=== PATIENT | male | born 1990 | race Caucasian/White ===

== ENCOUNTER 2017-02-01 14:13 | Emergency (ER) | payer OTHER ==
[~2017-02-01] VITALS: Ht 172.7 cm; Wt 97.5 kg
[2017-02-01] MEDS ORDERED: MEDROL 4MG. DOSE4 MG PO (14:48)
[2017-02-01] MEDS ORDERED: ZITHROMAX Z PA250 MG PO (14:48)
[2017-02-01] MEDS ORDERED: PROMETHAZINE D118 ML PO (14:48)
--- NOTE | 2017-02-01 14:48 | Urgent Treatment Center Report ---
History of Present Issue Date/Time Seen by Provider 02/01/17 1441 Visit Reason Pt arrived:Walked Presenting Problem:PT C/O BODYACHES EARLIER THIS WK BUT STATES THAT THEY HAVE SUBSIDED NOW. PT STATES THE ONLY PROBLEM HE HAS NOW IS A PERSISTANT COUGH Location if Accident: Onset of symptoms date/time:/ or onset unknown for:MEDICAL HX UNKNOWN Have you (or family members/close friends) recently traveled outside the [place]? N If Yes, where/when: Have you had exposure to infectious disease within the past month? TB? Other? Specify: Patient state that he has been having flu like symptoms earlier in the week states that then he began to go away and now he is having sore throat and persistant non-productive cough State that he feels like somthing is draining down his neck and making him cough State that today his throat is more sore and still coughing so he came in to get checked ALLERGIES Coded Allergies: No Known Allergies (02/01/17) History Medical History General CAD? No Angina: No ME: No Hypertension? No Hyperlipidemia? No CHF? No DVT? No PE? No COPD? No Asthma? No Anemia? No GERD? No Gastric ulcers? No GI Bleed? No Hernia? No Thyroid Problems? No Hypothyroidism? No CVA? No Seizures? No Diabetes? No Renal Insuffiency? No UTI? No Stones? No BPH? No GB Disease: No Nephritic Syndrome? No Asplenia? No Hepatitis? No Sickle Cell Disease? No Arthritis? No Migraines? No Cataracts? No Glaucoma? No MRSA? No HIV? No TB? No Anxiety? No Depression? No Cancer? No More? No Immunization HX DT/Tetanus Unknown Surgical Hx Previous Surgery?N Social History Smoking Hx Smoker: Former Smoker Tobacco: Yes Type Cigarettes Alcohol Alcohol: No Review of Systems All Other Systems Reviewed and Negative ENT nose congestion, throat pain. Respiratory cough, denies shortness of breath, denies wheezing Gastrointestinal denies nausea, denies vomiting Physical Exam Vital Signs Vital Signs Date Time Temp Pulse Resp B/P Pulse O2 O2 Flow FiO2 Ox Delivery Rate 02/01 1436 98.4 112 18 142/87 97 General Appearance normal appearance, WD/WN, no apparent distress Ear, Nose, Throat Throat red, irritated, drainage noted, tenderness maxillary sinuses Respiratory Status Yes: trachea midline, chest symmetrical, non tender chest. No: respiratory distress. Lung Sounds bilateral: normal breath sounds, lungs clear. Cardiovascular normal exam, regular rate/rhythm, no peripheral edema Neurologic alert, normal exam, oriented x 3 Medical Decision Making LABS/Meds/Orders Pt receiving controlled substance in ED? No Departure Departure Time of Disposition 1443 Disposition DC Home or Self Care(routine) Clinical Impression Primary Impression: Upper respiratory infection Qualifiers: URI type: unspecified URI Qualified Code: J06.9 - Acute upper respiratory infection, unspecified Condition STABLE Referrals Jose F Strickland MD (Family): 2 Days-Call Office if no improvement or worsening of symptoms Patient Instructions Cough, Sore Throat Additional Instructions * Monitor Temp. Tylenol and/or Ibuprofen as needed. ER if fever is no less than 101 despite alternating Tylenol and Ibuprofen * Encourage fluids, water, Gatorade, powerade, pedialyte if infant/toddler/or child * Warm salt water gargles for throat irritation *Warm fluids *Sore throat lozenges *Sleep elevated *humidifier or vaporizer Lots of rest Increase fluids, water, Gatorade, powerade Follow up IMMEDIATELY for new or worsening of symptoms OR no noticeable improvement over the next 48-72 hours. 911 immediately Discharge Counseling Counseled pt/family regarding diagnosis, test results, medications/RX, home care Prescriptions Current Visit Scripts Azithromycin (Zithromycin (Z-FOX) 250MG Tab) 250 MG PO DAILY #6 TAB TAKE TWO (2) TABLETS ON DAY 1, THEN ONE (1) TABLET DAY #2 THRU #5 Methylprednisolone (Medrol Dose Fox) 4 MG PO UD #1 FOX TAKE DIRECTED ON PACKAGING PROMETHAZINE/DEXTROMETHORPHAN (Promethazine-Dm Syrup) 5 ML PO Q4 PRN cough #150 SYR Fluticasone Propionate (Flonase 50 Mcg Nasal [place]) 2 SPRAY NA DAILY #1 BOT at 7901
[2017-02-01] MEDS ORDERED: FLONASE 50 MCG16 GM (14:52)
[2017-02-01 14:57] VITALS: BP 142/87
--- OUTSIDE RECORDS SUMMARY | 2017-02-01 18:26 | External Medical Summary Rpt | CCD ---
Author Author , RONIT Organization RONIT Address Unknown Phone [email or web address] Care Team Providers Care First Breaker Feeder Name Role Phone WELLINGTON MARTINOHEN Jose, Unavailable Unavailable JOSI MARTINO Jose [facility] Unavailable Unavailable HOSPITAL, [facility] CEFERINO CHEUNG, Unavailable Unavailable CEFERINO CHEUNG JODI, HARVEY, Unavailable Unavailable [facility], Unavailable Unavailable [employer] [facility] [employer] CARLOS FLORES, Unavailable Unavailable CARLOS FLORES JR, WILLIAM Unavailable Unavailable F, MCKEMIE JR, WILLIAM F [facility] Unavailable Unavailable DEPT, [facility] DEPT [facility], Unavailable Unavailable [facility] PATHOLOGY & CYTOLOGY Unavailable Unavailable LAB, PATHOLOGY & CYTOLOGY LAB [facility] Unavailable Unavailable #493, [facility] #493 KRYSTINA CAN JR Unavailable Unavailable PAMELLA Adler JR, EDWARD J Purpose Continuity of Care Document - 04-15-2007 through 2016 Problems Code Diagnosis DOS Provider Status V0481 NEED 01-01-2009 [facility]/CO PROPHYLACTI HEALTH C CENTRAL VACCINATION BANK ACCT &INOCULATIO N FLU 17210 ASTHMA, 03-22-2008 [facility] UNSPECIFIED STATUS 7062 SEBACEOUS 03-22-2008 ZAKIA FLORES 42226 DIARRHEA 03-19-2008 [facility] [place] INTERNAL MED 2120 VAUGHN 03-16-[address] [facility]SE NEOPLASM [facility] CAVITIES MID EAR&ACSS SINUSES V7284 UNSPECIFIED 03-16-2008 [facility] PRE-OPERATI HOSPITAL VE EXAMINATION 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 8509 UNSPECIFIED 02-09-2008 [facility] CONCUSSION [place] INTERNAL MED 9070 LATE EFF 02-03-2008 [facility] HOSPITAL [place]JURY [place] [address] HEAD 02-03-2008 [facility] INJURY, RADIOLOGY UNSPECIFIED ASSOCIATES PSC 4619 ACUTE 01-21-2008 [facility] SINUSITIS, [place] UNSPECIFIED INTERNAL MED 38940 UNSPECIFIED 01-21-2008 [facility] S[facility] OF [place] ANKLE INTERNAL SPRAIN AND MED STRAIN 6869 UNSPEC 11-30-2007 [facility] INFECTION SKIN&SUBCUT ANEOUS TISSUE 96363 OTHER 10-28-2007 [facility] DISORDERS VALLEY OF INTERNAL EUSTACHIAN MED TUBE 7804 DIZZINESS 10-28-2007 [facility] GIDDINESS INTERNAL MED 6829 CELLULITIS 10-21-2007 [facility] AND ABSCESS VAL[facility] OF INTERNAL UNSPECIFIED MED SITE 31383 ABDOMINAL 09-22-2007 [facility] PAIN, VALLEY GENERALIZED INTERNAL MED 7856 ENLARGEMENT 08-13-2007 [facility] LYMPH RADIOLOGY NODES ASSOCIATES PSC 27247 ABDOMINAL 08-13-2007 [facility] PAIN RIGHT VALLEY UPPER INTERNAL QUADRANT MED 25553 ABDOMINAL 08-13-2007 [facility] PAIN RIGHT VALLEY LOWER INTERNAL QUADRANT MED 2167 BENIGN 07-08-2007 [facility] NEOPLASM [place] SKIN LOWER INTERNAL LIMB MED INCLUDING HIP 7011 ACQUIRED 07-08-2007 [facility]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 [place] INTERNAL MED 22699 ESOPHAGEAL 06-23-2007 [facility] REFLUX [place] INTERNAL MED 87379 ABDOMINAL 06-23-2007 [facility] PA[facility], [place] EPIGASTRIC INTERNAL MED 5368 DYSPEPSIA&O 05-13-2007 [facility] THER SPEC [place] DISORDERS INTERNAL FUNCTION MED STOMACH 5589 OTH&UNSPEC 04-15-2007 [facility] NONINFECTIO [place] US INTERNAL GASTROENTER MED ITIS&COLITI S Medications Na ND Rx Da Fi Fi Am Da Di Ph RX Ph St me C No te ll ll ou ys ag ar # ys at rm s nt no ma ic us Or Da si cy ia de te s n re d 00 09 10 00 30 30 HO 99 BE Ac 00 -2 -0 .0 PK 96 SS ti 60 4- 8- 00 IN 59 ON ve 11 20 20 S [address] 1 UG EP HE CO N A IN C 00 05 09 03 30 30 HO 99 BE Ac 00 -2 -1 .0 PK 59 SS ti 60 2- 0- 00 IN 29 ON ve 11 20 20 S [address] 1 UG EP HE CO N A IN C 00 05 08 02 30 30 HO 99 BE Ac 00 -2 -1 .0 PK 59 SS ti 60 2- 3- 00 IN 29 ON ve 11 20 20 S [address] 1 UG EP HE CO N A IN C 00 05 07 01 30 30 HO 99 BE Ac 00 -2 -0 .0 PK 59 SS ti 60 2- 2- 00 IN 29 ON ve 11 20 20 S [address] 1 UG EP HE CO N A IN C 00 05 06 00 30 30 HO 99 BE Ac 00 -2 -0 .0 PK 59 SS ti 60 2- 4- 00 IN 29 ON ve 11 20 20 S [address] 1 UG EP HE CO N A IN C 00 01 05 03 30 30 HO 99 BE Ac 00 -2 -0 .0 PK 21 SS ti 60 1- 7- 00 IN 07 ON ve 11 20 20 S [address] 1 UG EP HE CO N A IN C 00 01 04 02 30 30 HO 99 BE Ac 00 -2 -0 .0 PK 21 SS ti 60 1- 9- 00 IN 07 ON ve 11 20 20 S [address] 1 UG EP HE CO N A IN C 00 01 02 01 30 30 HO 99 BE Ac 00 -2 -2 .0 PK 21 SS ti 60 1- 6- 00 IN 07 ON ve 11 20 20 S [address] 1 UG EP HE CO N A IN C 00 01 01 00 30 30 HO 99 BE Ac 00 -2 -3 .0 PK 21 SS ti 60 1- 0- 00 IN 07 ON ve 11 20 20 S [address] 1 UG EP HE CO N A IN C 59 12 01 00 8. 16 HO 99 BE Ac 31 -1 -0 50 PK 09 SS ti 00 7- 1- 0 IN 88 ON ve 57 20 20 S [address] 0 UG EP HE CO N A IN C 00 12 01 00 30 30 HO 99 BE Ac 00 -1 -0 .0 PK 09 SS ti 60 5- 1- 00 IN 56 ON ve 11 20 20 S [address] 1 UG EP HE CO N A IN C CE 68 12 01 00 30 10 WA 69 LA Ac PH 18 -1 -0 .0 L- 71 WS ti AL 00 5- 1- 00 MA 35 ON ve EX 12 20 20 RT 0 IN 20 [address] 50 AR OR 0 MA G MG CY CA #4 PS 93 UL E AC 00 12 01 00 20 5 WA 44 LA Ac ET 09 -1 -0 .0 L- 70 WS ti AM 30 5- 1- 00 MA 78 ON ve IN 15 20 20 RT 2 OP 01 [address] N- AR OR CO MA G D CY #3 #4 TA 93 BL ET 00 11 11 00 30 30 HO 98 BE Ac 00 -1 -2 .0 PK 99 SS ti 60 3- 0- 00 IN 11 ON ve 11 20 20 S [address] 1 UG EP HE CO N A IN C 64 10 10 00 84 21 HO 98 No Ac 37 -1 -2 .0 PK 89 t ti 60 5- 3- 00 IN 78 Av ve 54 20 20 S ai [address] la 1 UG bl e CO IN C ME 00 10 10 00 21 21 HO 98 No Ac LO 09 -1 -2 .0 PK 89 t ti XI 37 5- 3- 00 IN 77 Av ve CA 23 20 20 S ai M [address] la 7. 1 UG bl 5 e MG CO TA IN BL C ET 00 05 10 05 30 30 HO 98 No Ac 00 -1 -2 .0 PK 42 t ti 60 4- 3- 00 IN 83 Av ve 11 20 20 S ai [address] tristan 1 UG bl e CO IN C 00 05 09 04 30 30 HO 98 No Ac 00 -1 -2 .0 PK 42 t ti 60 4- 6- 00 IN 83 Av ve 11 20 20 S ai [address] la 1 UG bl e CO IN C 63 08 09 00 30 8 HO 98 No Ac 30 -2 -1 .0 PK 73 t ti 40 5- 1- 00 IN 03 Av ve 65 20 20 S ai [address] tristan 5 UG bl e CO IN C 00 05 08 03 30 30 HO 98 No Ac 00 -1 -2 .0 PK 42 t ti 60 4- 8- 00 IN 83 Av ve 11 20 20 S ai 73 08 08 la 1 UG bl e CO IN C CE 68 07 08 00 20 10 HO 98 No Ac FD 18 -1 -0 .0 PK 61 t ti IN 00 5- 1- 00 IN 74 Av ve IR 71 20 20 S ai [address] la 30 0 UG bl 0 e MG CO CA IN PS C UL E 00 05 08 02 30 30 HO 98 No Ac 00 -1 -0 .0 PK 42 t ti 60 4- 1- 00 IN 83 Av ve 11 20 20 S ai [address] azalea 1 UG bl e CO IN C 00 05 07 01 30 30 HO 98 No Ac 00 -1 -0 .0 PK 42 t ti 60 4- 3- 00 IN 83 Av ve 11 20 20 S ai [address] la 1 UG bl e CO IN C 00 05 05 00 30 30 HO 98 No Ac 00 -1 -2 .0 PK 42 t ti 60 4- 2- 00 IN 83 Av ve 11 20 20 S ai [address] tristan 1 UG bl e CO IN C 00 01 04 03 30 30 HO 98 No Ac 00 -1 -2 .0 PK 03 t ti 60 4- 4- 00 IN 33 Av ve 11 20 20 S ai [address] tristan 1 UG bl e CO IN C 00 01 04 02 30 30 HO 98 No Ac 00 -1 -1 .0 PK 03 t ti 60 4- 7- 00 IN 33 Av ve 11 20 20 S ai [address] tristan 1 UG bl e CO IN C 59 10 04 01 34 30 HO 97 No Ac 93 -0 -1 .0 PK 75 t ti 01 9- 0- 00 IN 07 Av ve 56 20 20 S ai [address] tristan 1 UG bl e CO IN C 00 01 03 01 30 30 HO 98 No Ac 00 -1 -2 .0 PK 03 t ti 60 4- 6- 00 IN 33 Av ve 11 20 20 S ai [address] tristan 1 UG bl e CO IN C 00 01 03 00 30 30 HO 98 No Ac 00 -1 -2 .0 PK 03 t ti 60 4- 5- 00 IN 33 Av ve 11 20 20 S ai [address] tristan 1 UG bl e CO IN C AZ 68 01 03 00 15 4 HO 98 No Ac OM 38 -0 -2 .0 PK 01 t ti ET 20 8- 4- 00 IN 49 Av ve BOSCH 04 20 20 S ai ZI [address] Garner 1 UG bl e 25 CO MG IN C TA BL ET Immunization Name Date Rout CVX Reac Dose Comm Prov Is Faci e tion ent ider Refu lity Give sed n IIV3 12-08 141 YESENIA No DHS/ 6-20 [facility] [place] VACC 09 CO HEAL INE HEAL TH SPLI TH CENT T DEPT RAL VIRU BANK S 0.5 ACCT ML DOSA GE IM USE IIV3 04-09 141 YESENIA No DHS/ 8-20 [facility] VACC 08 CO HEAL INE HEAL TH SPLI TH CENT T DEPT RAL VIRU BANK S 0.5 ACCT ML DOSA GE IM USE Procedures Procedure DOS Code Location Performer Comment IIV3 56568 [facility]/CO JAYSHREE VACCINE 9 HEALTH CO [facility] CENTRAL DEPT VIRUS 0.5 BANK ACCT ML DOSAGE IM USE ADJT TIS 81714 SANDRA FLORES, TRNSFR/RE 8 CARLOS G CARLOS Ivan ARRGMT E/N/E/L DFCT 10 SQ CM/< ANES 50135 [place] [facility] INTEG 8 ANESTHESI I JR, [employer] EDWARD J NRV HEAD PSC NECK&POST ERIOR TRUNK LEVEL III 90222 PATHOLOGY PATHOLOGY SURG 8 & & PATHOLOGY CYTOLOGY CYTOLOGY LAB LAB GROSS&MARIE ROSCOPIC EXAM BLOOD 74243 [facility] COUNT 8 [facility] T B[facility] 91014 [facility] 8 [facility] [place] [address] [facility], HEAD/BRAI 8 CEFERINO Vera N W/O RADIOLOGY CONTRAST MATERIAL ASSOCIATE S PSC CT PELVIS 03097 [facility], 8 CEFERINO S W/CONTRAS RAD[place]OLOG[place] [address] [facility], ABDOMEN 8 CEFERINO S W/O & RADIOLOGY W/CONTRAS T ASSOCIATE MATERIAL S PSC 3D 40470 [facility], RENDERING 8 CEFERINO S W/INTERP RADIOLOGY & POSTPROCE ASSOCIATE SS S PSC SUPERVISI ON BLOOD 66008 JAYSHREE MARTELL COUNT 8 [facility] AUTO&AUTO DIFRNTL WBC COLLECTIO 62184 JAYSHREE MARTELL N VENOUS 8 [facility] BLOOD [facility] VENIPUNCT URE COLLECTIO 30060 JAYSHREE MARTELL N VENOUS 8 [facility] BLOOD [facility] VENIPUNCT URE COMPREHEN 77737 JAYSHREE MARTELL SIVE 8 [facility] [place] [address] JAYSHREE MARTELL AMYLASE 8 [facility] BLOOD 14533 JAYSHREE HAMLIN 8 [facility] SMEAR [facility] MCRSCP W/MNL DIFRNTL WBC COUNT BLOOD 37242 JAYSHREE MARTELL COUNT 8 [facility] AUTO&[place] [address] JAYSHREE MARTELL LIPASE 8 [facility] IIV3 50356 DHS/CO JAYSHREE VACCINE 8 [facility] V[facility] 0.5 BANK ACCT ML DOSAGE IM USE Encounters Encounter Start End Date Code Location Performer Type Date [facility] [place] [address] 8 [facility] T OFFICE 38290 [facility] CORNELIO OUTPATIEN 8 8 [place] TREMAINE T VISIT INTERNAL 10 MED MINUTES [facility] [place] [address] 8 [facility] T OFFICE 73162 SAN[facility] SANDRA [facility] 8 8 CARLOS Ivan [place] MINUTES OFFICE 36221 [facility] 8 [place] TREMAINE T VISIT INTERNAL 10 MED MINUTES OFFICE 20976 [facility] [place] [facility] 8 8 [place] JOSI A T VISIT INTERNAL 15 MED MINUTES HOSPITAL [facility] - 8 [facility] T OFFICE 11188 [facility] [place] OUTPATIEN 8 8 [place] JOSI A T VISIT INTERNAL 15 MED MINUTES OFFICE 34262 [facility] MCKEMIE [facility] 8 8 [place] SUE T VISIT INTERNAL MARISSA F 15 MED MINUTES HOSPITAL JAYSHREE - 8 8 [facility] T EMERGENCY 76821 JAYSHREE 8 8 [place] T VISIT LIMITED/M INOR PROB OFFICE 74535 [facility] MCKEMIE [facility] 8 8 [place] SUE, T VISIT INTERNAL MARISSA F 15 MED MINUTES OFFICE 90916 [facility] BESMEGHA OUTPATIEN 8 8 [place] JOSI A T VISIT INTERNAL 15 MED MINUTES OFFICE 88457 [facility] BESMEGHA OUTPATIEN 8 8 [place] JOSI A T VISIT INTERNAL 10 MED MINUTES OFFICE 12200 [facility] MCKEMIE [facility] 8 8 [place] JR T VISIT INTERNAL MARISSA F [address] [facility] 8 8 [facility] T OFFICE 81046 [facility] CHANGSHAZIAMIE [facility] 8 8 [place] JR T VISIT INTERNAL MARISSA F [address] [facility] 8 8 [facility] T OFFICE 05645 [facility] [place] OUTPATIEN 8 8 [place] JOSI Garcia T VISIT INTERNAL 15 MED MINUTES OFFICE 26656 [facility] 8 [place] JOSI Garcia T VISIT INTERNAL 15 MED MINUTES OFFICE 92878 [facility] CHANGSHAZIAMIE [facility] 8 8 [place] JR T VISIT INTERNAL MARISSA F 15 MED MINUTES
--- OUTSIDE RECORDS SUMMARY | 2017-02-01 18:26 | External Medical Summary Rpt | CCD ---
Author Author , RONIT Organization RONIT Address Unknown Phone [email or web address] Care Team Providers Care Mrb Engineer Name Role Phone WELLINGTON MARTINOHEN Jose, Unavailable Unavailable JOSI MARTINO Jose [facility] Unavailable Unavailable HOSPITAL, [facility] CEFERINO CHEUNG, Unavailable Unavailable CEFERINO CHEUNG JODI, HARVEY, Unavailable Unavailable [facility], Unavailable Unavailable [employer] [facility] [employer] CARLOS FLORES, Unavailable Unavailable CARLOS FLORES JR, WILLIAM Unavailable Unavailable F, MCKEMIE JR, WILLIAM F [facility] Unavailable Unavailable DEPT, [facility] DEPT [facility], Unavailable Unavailable [facility] PATHOLOGY & CYTOLOGY Unavailable Unavailable LAB, PATHOLOGY & CYTOLOGY LAB [facility] Unavailable Unavailable #493, [facility] #493 KRYSTINA CAN JR Unavailable Unavailable PAMELLA Adler JR, EDWARD J Purpose Continuity of Care Document - 04-15-2007 through 2016 Problems Code Diagnosis DOS Provider Status V0481 NEED 01-01-2009 [facility]CO PROPHYLACTI HEALTH C CENTRAL VACCINATION BANK ACCT &INOCULATIO N FLU 62170 ASTHMA, 03-22-2008 [facility] UNSPECIFIED STATUS 7062 SEBACEOUS 03-22-2008 ZAKIA FLORES 55507 DIARRHEA 03-19-2008 [facility] [place] INTERNAL MED 2120 VAUGHN 03-16-2008 [facility] NEOPLASM [facility] CAVITIES MID EAR&ACSS SINUSES V7284 UNSPECIFIED 03-16-2008 [facility] PRE-OPERATI HOSPITAL VE EXAMINATION 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 8509 UNSPECIFIED 02-09-2008 [facility] CONCUSSION [place] INTERNAL MED 9070 LATE EFF 02-03-2008 [facility] HOSPITAL [place]JURY [place] 29567 HEAD 02-03-2008 [facility] INJURY, RADIOLOGY UNSPECIFIED ASSOCIATES PSC 4619 ACUTE 01-21-2008 [facility] SINUSITIS, [place] UNSPECIFIED INTERNAL MED 63889 UNSPECIFIED 01-21-2008 [facility] SITE OF [place] ANKLE INTERNAL SPRAIN AND MED STRAIN 6869 UNSPEC 11-30-2007 [facility] INFECTION SKIN&SUBCUT ANEOUS TISSUE 78182 OTHER 10-28-2007 [facility] DISORDERS VALLEY OF INTERNAL EUSTACHIAN MED TUBE 7804 DIZZINESS 10-28-2007 [facility] AND VAL[facility] GIDDINESS INTERNAL MED 6829 CELLULITIS 10-21-2007 [facility] AND ABSCESS VAL[facility] OF INTERNAL UNSPECIFIED MED SITE 49119 ABDOMINAL 09-22-2007 [facility] PAIN, VALLEY GENERALIZED INTERNAL MED 7856 ENLARGEMENT 08-13-2007 [facility] LYMPH RADIOLOGY NODES ASSOCIATES PSC 98579 ABDOMINAL 08-13-2007 [facility] PAIN RIGHT VALLEY UPPER INTERNAL QUADRANT MED 00857 ABDOMINAL 08-13-2007 [facility] PAIN RIGHT VALLEY LOWER INTERNAL QUADRANT MED 2167 BENIGN 07-08-2007 [facility] NEOPLASM [place] SKIN LOWER INTERNAL LIMB MED INCLUDING HIP 7011 ACQUIRED 07-08-2007 [facility]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 [place] INTERNAL MED 84372 ESOPHAGEAL 06-23-2007 [facility] REFLUX [place] INTERNAL MED 08468 ABDOMINAL 06-23-2007 [facility] PAIN, [place] EPIGASTRIC INTERNAL MED 5368 DYSPEPSIA&O 05-13-2007 [facility] THER SPEC [place] DISORDERS INTERNAL FUNCTION MED STOMACH 5589 OTH&UNSPEC 04-15-2007 [facility] NONINFECTIO [place] US INTERNAL GASTROENTER MED ITIS&COLITI S Medications [...] 1 UG bl e CO IN C IA 68 01 03 00 15 4 HO [...] Procedure DOS Code Location Performer Comment IIV3 83127 [facility]/CO JAYSHREE VACCINE 9 HEALTH CO [facility] CENTRAL DEPT VIRUS 0.5 BANK ACCT ML DOSAGE IM USE ADJT TIS 37022 SANDRA FLORES, TRNSFR/RE 8 CARLOS G CARLOS Ivan ARRGMT E/N/E/L DFCT 10 SQ CM/< ANES 18315 [place] [facility] INTE[facility] 8 ANESTHESI I JR, [employer] EDWARD J NRV HEAD PSC NECK&POST ERIOR TRUNK LEVEL III 09442 PATHOLOGY PATHOLOGY SURG 8 & & PATHOLOGY CYTOLOGY CYTOLOGY LAB LAB GROSS&MARIE ROSCOPIC EXAM BLOOD 17818 [facility] COUNT 8 [facility] T B[facility] 43603 [facility] [address] [facility] [place] [address] [facility], HEAD/BRAI 8 CEFERINO Vera N W/O RADIOLOGY CONTRAST MATERIAL ASSOCIATE S PSC CT PELVIS 92872 [facility], 8 CEFERINO S W/CONTRAS RADIOLOG[place] [address] [facility], ABDOMEN 8 CEFERINO S W/O & RADIOLOGY W/CONTRAS T ASSOCIATE MATERIAL S PSC 3D 68615 [facility], RENDERING 8 CEFERINO S W/INTERP RADIOLOGY & POSTPROCE ASSOCIATE SS S PSC SUPERVISI ON BLOOD 41287 JAYSHREE MARTELL COUNT 8 [facility] AUTO&AUTO DIFRNTL WBC COLLECTIO 85756 JAYSHREE MARTELL N VENOUS 8 [facility] BLOOD F F [facility] VENIPUNCT URE COLLECTIO 84443 JAYSHREE MARTELL N VENOUS 8 [facility] BLOOD F F [facility] VENIPUNCT URE COMPREHEN 77052 JAYSHREE MARTELL SIVE 8 [facility] [place] [address] JAYSHREE MARTELL AMYLASE 8 [facility] BLOOD 72473 JAYSHREE HAMLIN 8 [facility] SMEAR F F [facility] MCRSCP W/MNL DIFRNTL WBC COUNT BLOOD 09209 JAYSHREE MARTELL COUNT 8 [facility] AUTO&[place] [address] JAYSHREE MARTELL LIPASE 8 [facility] IIV3 06997 [facility]INE [facility] B[facility] ACCT ML DOSAGE IM USE Encounters Encounter Start End Date Code Location Performer Type Date [facility] [place] [address] 8 [facility] T OFFICE 56012 [facility] CORNELIO OUTPATIEN 8 8 [place] TREMAINE T VISIT INTERNAL 10 MED MINUTES [facility] [place] [address] 8 [facility] T OFFICE 12628 SANDR[facility] SANDRA [facility] 8 8 CARLOS Ivan [place] MINUTES OFFICE 19870 [facility] [place] TREMAINE T VISIT INTERNAL 10 MED MINUTES OFFICE 13878 [facility] [place] OUTPATI[facility] 8 8 [place] JOSI A T VISIT INTERNAL 15 MED MINUTES [facility] - 8 [facility] T OFFICE 01334 [facility] [place] OUT[facility] 8 8 [place] JOSI A T VISIT INTERNAL 15 MED MINUTES OFFICE 98180 [facility] MCKEMIE [facility] 8 8 [place] SUE T VISIT INTERNAL MARISSA F 15 MED MINUTES HOSPITAL JAYSHREE - 8 8 [facility] T EMERGENCY 29943 J[facility]REE 8 8 [facility] T VISIT LIMITED/M INOR PROB OFFICE 40275 [facility] 8 8 [place] SUE, T VISIT INTERNAL MARISSA F 15 MED MINUTES OFFICE 50150 [facility] BESMEGHA OUTPATIEN 8 8 [place] JOSI A T VISIT INTERNAL 15 MED MINUTES OFFICE 49140 [facility] 8 8 [place] [facility] T VISIT INTERNAL 10 MED MINUTES OFFICE [id number] [facility] 8 8 [place] JR T VISIT INTERNAL MARISSA F 15 MED MINUTES [facility] 8 8 [facility] 32618 [facility] 8 8 [place] JR T VISIT INTERNAL MARISSA F 10 MED MINUTES [facility] 8 8 [facility] 91174 [facility] 8 8 [place] [facility] Garcia T VISIT INTERNAL 15 MED MINUTES OFFICE 48286 [facility] [place] [facility] Garcia T VISIT INTERNAL 15 MED MINUTES OFFICE 77924 [place] [facility] 8 8 [place] JR T VISIT INTERNAL MARISSA F 15 MED MINUTES
--- OUTSIDE RECORDS SUMMARY | 2017-02-01 18:27 | External Medical Summary Rpt | CCD ---
Author Author , RONIT COTTRELL Address Unknown Phone [email or web address] Care Team Providers Care Obstetrics Nurse Name Role Phone JOSI MARTINO, Unavailable Unavailable JOSI MARTINO [facility] Unavailable Unavailable [facility], [facility] CEFERINO CHEUNG, Unavailable Unavailable CEFERINO CHEUNG JODI, HARVEY, Unavailable Unavailable [employer], Unavailable Unavailable [employer] CARLOS FLORES, Unavailable Unavailable CARLOS FLORES JR, WILLIAM Unavailable Unavailable F, MARISSA RESENDEZ JR [facility] Un[facility], Unavailable Unavailable [facility] PATHOLOGY & CYTOLOGY Unavailable Unavailable LAB, PATHOLOGY & CYTOLOGY LAB [facility] Unavailable Unavailable #493, [facility] KRYSTINA CAN JR Unavailable Unavailable J, KRYSTINA CAN JR J Purpose Continuity of Care Document - 04-15-2007 through 2016 Problems Code Diagnosis DOS Provider Status V0481 NEED 01-01-2009 [facility]/CO PROPHYLACTI HEALTH C CENTRAL VACCINATION BANK ACCT &INOCULATIO N FLU 61188 ASTHMA, 03-22-2008 [facility] UNSPECIFIED STATUS 7062 SEBACEOUS 03-22-2008 SANDRA, ZAKIA Ivan 32238 DIARRHEA 03-19-2008 [place] INTERNAL MED 2120 VAUGHN 03-16-2008 [place] NEOPLASM [facility] CAVITIES MID EAR&ACSS SINUSES V7284 UNSPECIFIED 03-16-2008 [facility] VE EXAMINATION 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 8509 UNSPECIFIED 02-09-2008 [facility] CONCUSSION [place] INTERNAL MED 9070 LATE EFF 02-03-2008 [facility] HOSPITAL INJURY [place] [address] HEAD 02-03-2008 [place] INJURY, RADIOLOGY UNSPECIFIED [facility] 4619 ACUTE 01-21-2008 [facility] SINUSITIS, [place] UNSPECIFIED INTERNAL MED 05030 UNSPECIFIED 01-21-2008 [facility] SITE [place] ANKLE INTERNAL SPRAIN AND MED STRAIN 6869 UNSPEC 11-30-2007 JAYSHREE PORTILLO LOCAL [facility] INFECTION SKIN&SUBCUT ANEOUS TISSUE 75956 OTHER 10-28-2007 [facility] DISORDERS [place] OF INTERNAL EUSTACHIAN MED TUBE 7804 DIZZINESS 10-28-2007 [facility] AND [place] GIDDINESS INTERNAL MED 6829 CELLULITIS 10-21-2007 [facility] AND ABSCESS [place] OF INTERNAL UNSPECIFIED MED SITE 04061 ABDOMINAL 09-22-2007 [facility] PAIN, [place] GENERALIZED INTERNAL MED 7856 ENLARGEMENT 08-13-2007 [facility] LYMPH RADIOLOGY NODES ASSOCIATES PSC 19824 ABDOMINAL 08-13-2007 [facility] PAIN RIGHT [place] UPPER INTERNAL QUADRANT MED 55805 ABDOMINAL 08-13-2007 [facility] PAIN RIGHT [place] LOWER INTERNAL QUADRANT MED 2167 BENIGN 07-08-2007 [facility] NEOPLASM [place] SKIN LOWER INTERNAL LIMB MED INCLUDING HIP 7011 ACQUIRED 07-08-2007 [facility]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 [place] INTERNAL MED 73588 ESOPHAGEAL 06-23-2007 [facility] REFLUX [place] INTERNAL MED 27247 ABDOMINAL 06-23-2007 [facility] PAIN, [place] EPIGASTRIC INTERNAL MED 5368 DYSPEPSIA&O 05-13-2007 [facility] THER SPEC [place] DISORDERS INTERNAL FUNCTION MED STOMACH 5589 OTH&UNSPEC 04-15-2007 [facility] NONINFECTIO [place] US INTERNAL GASTROENTER MED ITIS&COLITI S Medications [...] HE CO N A IN C 00 09 03 30 30 HO 99 BE [...] #3 #4 TA 93 BL ET 00 12 01 00 30 30 HO [...] HE CO N A IN C 00 11 11 00 30 30 HO [...] S ai M [address] tristan 7. 1 UG bl 5 e MG [...] 20 S ai [address] azalea 30 0 UG bl 0 e MG [...] 1 UG bl e CO IN C AR 68 01 03 00 15 4 HO [...] Procedure DOS Code Location Performer Comment IIV3 45263 [facility] JAYSHREE VACCINE 9 HEALTH CO HEALTH SPLIT CENTRAL DEPT VIRUS 0.5 BANK ACCT ML DOSAGE IM USE ANES 89879 [place] [facility] INTEG 8 ANESTHESI I JR, [facility] KRYSTINA J NRV HEAD PSC NECK&POST ERIOR TRUNK ADJT TIS 82509 TERES[facility] TRNSFR/RE 8 [facility] E/N/E/L DFCT 10 SQ CM/< LEVEL III 63103 PATHOLOGY PATHOLOGY SURG 8 & & PATHOLOGY CYTOLOGY CYTOLOGY LAB LAB GROSS&MARIE ROSCOPIC EXAM BLOOD [address] [facility] [address] [place] [address] JAYSHREE MARTELL HEAD/BRAI 8 CO CO N W/[place] [address] [facility], ABDOMEN 8 CEFERINO Vera W/O & RADIOLOGY W/CONTRAS T ASSOCIATE MATERIAL S PSC 3D 08903 [facility], RENDERING 8 CEFERINO Vera W/INTERP RADIOLOGY & POSTPROCE ASSOCIATE SS S PSC SUPERVISI ON CT PELVIS [address] [facility], 8 CEFERINO Vera W/CONTRAS RADIOLOGY T MATERIAL ASSOCIATE S PSC COLLECTIO 00492 JAYSHREE Barfield VENOUS 8 CO CO BLOOD [facility] VENIPUNCT URE BLOOD 38925 JAYSHREE HAMLIN 8 CO CO COMPLETE [facility] AUTO&AUTO DIFRNTL WBC COMPREHEN 05501 JAYSHREE MARTELL SIVE 8 CO [facility] PANEL BLOOD 34037 JAYSHREE HAMLIN 8 CO CO COMPLETE [facility] HOSPITAL AUTO&AUTO DIFRNTL WBC COLLECTIO 87540 JAYSHREE Barfield VENOUS 8 CO CO BLOOD [facility] VENIPUNCT URE BLOOD 43420 JAYSHREE HAMLIN 8 CO CO SMEAR [facility] MCRSCP W/[place] [address] JAYSHREE MARTELL LIPASE 8 CO CO [facility] [place] [address] JAYSHREE MARTELL AMYLASE 8 [facility] IIV3 95553 [facility]/CO JAYSHREE VACCINE 8 [facility] B[facility] ACCT ML DOSAGE IM USE Encounters Encounter Start End Date Code Location Performer Type Date [facility] 8 8 [facility] T OFFICE 54602 [facility] 8 8 [place] TREMAINE T VISIT INTERNAL 10 MED MINUTES [facility] [place] [address] 8 [facility] T OFFICE 42452 SANDRA FLORES [facility] 8 8 CARLOS Ivan T NEW 30 MINUTES OFFICE 33000 [facility] CORNELIO [facility] 8 8 [place] TREMAINE T VISIT INTERNAL 10 MED MINUTES OFFICE 74114 [facility] [place] OUTPATIEN 8 8 [place] JOSI A T VISIT INTERNAL 15 MED MINUTES [facility] [place] [address] 8 [facility] T OFFICE 25356 [facility] [place] OUTPATIEN 8 8 [place] JOSI A T VISIT INTERNAL 15 MED MINUTES OFFICE 68815 [facility] MCKEMIE [facility] 8 8 [place] T VISIT INTERNAL MARISSA F 15 MED MINUTES EMERGENCY 10860 JAYSHREE 8 8 [facility] T VISIT LIMITED/M [facility] JAYSHREE [facility] 8 [facility] T OFFICE 59456 [facility] 8 8 [place] JR, T VISIT INTERNAL MARISSA F 15 MED MINUTES OFFICE 63413 [facility] BESMEGHA, OUTPATIEN 8 8 [place] JOSI A T VISIT INTERNAL 15 MED MINUTES OFFICE 22410 [facility] [place] OUTPATIEN 8 8 [place] JOSI A T VISIT INTERNAL 10 MED MINUTES OFFICE 03142 [facility] 8 8 [place] , T VISIT INTERNAL MARISSA F 15 MED MINUTES [facility] [place] [address] 8 [facility] T OFFICE 27502 [facility] CHANGSHAZIADELVIS [facility] 8 8 [place] JR T VISIT INTERNAL MARISSA F 10 MED MINUTES OFFICE 19754 [facility] SALENA [facility] 8 8 [place] VISIT INTERNAL 15 MED MINUTES [facility] [place] [address] 8 [facility] T OFFICE 30150 [place] SALENA [facility] 8 8 [place] VISIT INTERNAL 15 MED MINUTES OFFICE 32010 [facility] CHANGSHAZIACAROLYNE [facility] 8 8 [place] JR T VISIT INTERNAL MARISSA F 15 MED MINUTES
--- OUTSIDE RECORDS SUMMARY | 2017-02-01 18:27 | External Medical Summary Rpt | CCD ---
Author Author , RONIT COTTRELL Address Unknown Phone [email or web address] Care Team Providers Care Cloth Dye Range Operator Name Role Phone JOSI MARTINO, Unavailable Unavailable JOSI MARTINO [facility] Unavailable Unavailable HOSPITAL, [facility] CEFERINO CHEUNG, Unavailable Unavailable CEFERINO CHEUNG JODI, HARVEY, Unavailable Unavailable [employer]RE[employer]INE [employer], Unavailable Unavailable [employer] CARLOS FLORES, Unavailable Unavailable CARLOS FLORES JR, WILLIAM Unavailable Unavailable F, MARISSA RESENDEZ JR [facility] Unavailable Unavailable DEPT, [facility] DEPT [facility], Unavailable Unavailable [facility] PATHOLOGY & CYTOLOGY Unavailable Unavailable LAB, PATHOLOGY & CYTOLOGY LAB [facility] Unavailable Unavailable #493, [facility] KRYSTINA CAN JR Unavailable Unavailable J, KRYSTINA CAN JR J Purpose Continuity of Care Document - 04-15-2007 through 2016 Problems Code Diagnosis DOS Provider Status [id number] NEED 01-01-2009 [facility]/CO PROPHYLACTI HEALTH C CENTRAL VACCINATION BANK ACCT &INOCULATIO N FLU 81879 ASTHMA, 03-22-2008 [facility] UNSPECIFIED STATUS 7062 SEBACEOUS 03-22-2008 SANDRA, ZAKIA Ivan 32902 DIARRHEA 03-19-2008 [facility] [place] INTERNAL MED 2120 VAUGHN 03-16-2008 [place] NEOPLASM [facility] CAVITIES MID EAR&ACSS SINUSES V7284 UNSPECIFIED 03-16-2008 [facility] PRE-OPERATI HOSPITAL VE EXAMINATION 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 INFECTION SKIN&SUBCUT ANEOUS TISSUE 11852 OTHER 10-28-2007 [place] DISORDERS [place] OF INTERNAL EUSTACHIAN MED TUBE 7804 DIZZINESS 10-28-2007 [facility] [place] GIDDINESS INTERNAL MED 6829 CELLULITIS 10-21-2007 [facility] AND ABSCESS [place] OF INTERNAL UNSPECIFIED MED SITE 53239 ABDOMINAL 09-22-2007 [place] PAIN, [place] GENERALIZED INTERNAL MED 7856 ENLARGEMENT 08-13-2007 [facility] LYMPH RADIOLOGY NODES ASSOCIATES PSC 83911 ABDOMINAL 08-13-2007 [place] PAIN RIGHT [place] UPPER INTERNAL QUADRANT MED 35087 ABDOMINAL 08-13-2007 [facility] PAIN RIGHT [place] LOWER INTERNAL QUADRANT MED 2167 BENIGN 07-08-2007 [place] NEOPLASM [place] SKIN LOWER INTERNAL LIMB MED INCLUDING HIP 7011 ACQUIRED 07-08-2007 [facility]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 [place] INTERNAL MED 85770 ESOPHAGEAL 06-23-2007 [facility] REFLUX [place] INTERNAL MED 13471 ABDOMINAL 06-23-2007 [facility] PAIN, [place] EPIGASTRIC INTERNAL MED 5368 DYSPEPSIA&O 05-13-2007 [facility] THER SPEC [place] DISORDERS INTERNAL FUNCTION MED STOMACH 5589 OTH&UNSPEC 04-15-2007 [facility] NONINFECTIO [place] US INTERNAL GASTROENTER MED ITIS&COLITI S Medications [...] 1 UG bl e CO IN C VT 68 01 03 00 15 4 HO [...] lity Give sed n IIV3 12-08 141 YESNEIA No DHS/ 6-20 [place] VACC 09 [...] Procedure DOS Code Location Performer Comment IIV3 78031 [facility] JAYSHREE VACCINE 9 HEALTH CO HEALTH SPLIT CENTRAL DEPT VIRUS 0.5 BANK ACCT ML DOSAGE IM USE ANES 26824 [place] [facility] [facility] 8 ANESTHESI I JR, [facility] KRYSTINA J NRV HEAD PSC NECK&POST ERIOR TRUNK ADJT TIS 92484 TERES[facility] MO[facility] TRNSFR/RE 8 [facility] E/N/E/L DFCT 10 SQ CM/< LEVEL III 70337 PATHOLOGY PATHOLOGY SURG 8 & & PATHOLOGY CYTOLOGY CYTOLOGY LAB LAB GROSS&MARIE ROSCOPIC EXAM BLOOD [address] [facility] T BLO[facility] [address] [facility] [address] JAYSHREE MARTELL HEAD/BRAI 8 CO CO N W/[place] [address] [facility], ABDOMEN 8 CEFERINO Vera W/O & RADIOLOGY W/CONTRAS T ASSOCIATE MATERIAL S PSC 3D 05111 [facility], RENDERING 8 CEFERINO Vera W/INTERP RADIOLOGY & POSTPROCE ASSOCIATE SS S PSC SUPERVISI ON CT PELVIS 29915 [facility], 8 CEFERINO Vera W/CONTRAS RADIOLOGY T MATERIAL ASSOCIATE S PSC COLLECTIO 22133 JAYSHREE Barfield VENOUS 8 CO CO BLOOD [facility] VENIPUNCT URE BLOOD 57267 JAYSHREE HAMLIN 8 CO CO COMPLETE [facility] AUTO&AUTO DIFRNTL WBC COMPREHEN 77376 JAYSHREE MARTELL SIVE 8 CO [facility] PANEL BLOOD 14840 JAYSHREE HAMLIN [address] [facility] HOSPITAL AUTO&AUTO DIFRNTL WBC COLLECTIO 92881 JAYSHREE Barfield VENOUS 8 CO CO BLOOD [facility] VENIPUNCT URE BLOOD 00535 JAYSHREE HAMLIN 8 CO CO SMEAR [facility] MCRSCP W/[place] [address] JAYSHREE MARTELL LIPASE [address] [facility] [address] JAYSHREE MARTELL AMYLASE 8 [facility] IIV3 47867 [facility]/CO JAYSHREE VACCINE 8 [facility] VIRUS 0.5 BANK ACCT ML DOSAGE IM USE Encounters Encounter Start End Date Code Location Performer Type Date [facility] 8 8 [facility] T OFFICE 09064 [place] [facility] 8 [place] TREMAINE T VISIT INTERNAL [address] [facility] [place] [address] 8 [facility] T OFFICE 88261 SANDRA FLORES [facility] 8 8 CARLOS Ivan T NEW 30 MINUTES OFFICE 81138 [place] [facility]IO [facility] 8 8 [place] TREMAINE T VISIT INTERNAL 10 MED MINUTES OFFICE 56680 [facility] OUTPATIEN 8 8 [place] JOSI A T VISIT INTERNAL 15 MED MINUTES [facility] [place] [address] 8 [facility] T OFFICE 53373 [place] OUTPATIEN 8 8 [place] JOSI A T VISIT INTERNAL 15 MED MINUTES OFFICE 44891 [place] [facility]EMIE [facility] 8 8 [place] T VISIT INTERNAL MARISSA F 15 MED MINUTES EMERGENCY 65660 JAYSHREE 8 8 [facility] T VISIT LIMITED/M INOR [facility] JAYSHREE [facility] 8 [facility] T OFFICE 77362 [place] [facility] 8 8 [place], T VISIT INTERNAL MARISSA F 15 MED MINUTES OFFICE 81109 [facility], OUTPATIEN 8 8 [place] JOSI A T VISIT INTERNAL 15 MED MINUTES OFFICE 10234 [facility] OUTPATIEN 8 8 [place] JOSI A T VISIT INTERNAL 10 MED MINUTES OFFICE 88006 [facility] [facility] 8 8 [place] , T VISIT INTERNAL MARISSA F 15 MED MINUTES [facility] [place] [address] 8 [facility] T OFFICE 29200 [facility] [facility]ADELVIS [facility] 8 8 [place] JR T VISIT INTERNAL MARISSA F 10 MED MINUTES OFFICE 99539 [place] [facility] 8 8 [place] VISIT INTERNAL 15 MED MINUTES [facility] [place] [address] 8 [facility] T OFFICE 61101 [place] SALENA [facility] 8 8 [place] VISIT INTERNAL 15 MED MINUTES OFFICE 20432 [facility] CHANGSHAZIACAROLYNE [facility] 8 8 [place] JR T VISIT INTERNAL MARISSA F 15 MED MINUTES
--- OUTSIDE RECORDS SUMMARY | 2017-02-01 18:28 | External Medical Summary Rpt | CCD ---
Author Author , RONIT COTTRELL Address Unknown Phone Immunization Name Date Rout CVX Reac Dose Comm Prov Is Faci e tion ent ider Refu lity Give sed n Tdap 07-2 115 999 Hist H191 No H191 , 1-20 oric Adso 06 al rbed Info rmat ion - Sour ce Unsp ecif ied Hep 05-1 8 999 Hist H191 No H191 B, 0-20 oric ped/ 02 al adol Info rmat ion - Sour ce Unsp ecif ied Hep 08-2 42 999 Hist H191 No H191 B, 3-19 oric adol 99 al Info High rmat Ris ion - Sour ce Unsp ecif ied
--- OUTSIDE RECORDS SUMMARY | 2017-02-01 18:28 | External Medical Summary Rpt | CCD ---
Author Author , RONIT COTTRELL Address Unknown Phone [email or web address] Immunization Name Date Rout CVX Reac Dose [...]
--- OUTSIDE RECORDS SUMMARY | 2017-02-01 18:28 | External Medical Summary Rpt ---
Author Author RONIT Barkley, [employer] Organization [employer] Address Unknown Phone Unavailable
== END 2017-02-01 14:57 | disposition home or self-care (01) ==
LOC: UTC 14:13
DX: J06.9 Acute upper respiratory infection, unspecified (principal); Z87.891 Personal history of nicotine dependence